=== PATIENT | male | born 1955 | race Caucasian/White ===

== ENCOUNTER 2018-04-18 10:11 | Emergency (ER) | payer BC ==
[2018-04-18 10:25] VITALS: BP 124/62
--- NOTE | 2018-04-18 11:03 | UC ---
Knee Pain HPI - HPI Summary HPI Summary: 63 yo male presents with right knee pain s/p injury. He tells me that his upstairs bathroom at home is being redone and yesterday morning he stepped through an unstable piece and his leg went through the floor. During this process his right knee bent awkwardly. He was able to get unstuck and ambulate immediately after. Since that time has had lateral knee pain. He has not taken anything for the pain and is currently ambulating without assistance or limp. Knee does not feel unstable. Denies numbness or tingling. - History of Current Complaint Chief Complaint: UCLowerExtremity Stated Complaint: KNEE INJURY Time Seen by Provider: 04/18/18 11:03 Hx Obtained From: Patient Severity Initially: Moderate Severity Currently: Mild Pain Intensity: 1 Pain Scale Used: 0-10 Numeric - Allergies/Home Medications Allergies/Adverse Reactions: Allergies Allergy/AdvReac Type Severity Reaction Status Date / Time ENVIRONMENT Allergy SNEEZE Uncoded 04/18/18 10:25 PMH/Surg Hx/FS Hx/Imm Hx Endocrine History: Dyslipidemia - Surgical History Surgical History: Yes Surgery Procedure, Year, and Place: 2006 [place] [facility] [place]. 1964 [place]IL[place]OMY, JAYNE. 2014[place] [facility] [place] Family History Known Family History: Positive: Hypertension - Social History Occupation: Employed Full-time Lives: With Family Alcohol Use: Daily Alcohol Amount: 1 BEER DAILY Substance Use Type: None Smoking Status (MU): Former Smoker Amount Used/How Often: 2 CIGARETTES PER DAY X OFF AND ON 45 YEARS Have You Smoked in the Last Year: No When Did the Patient Quit Smoking/Using Tobacco: 2013 Review of Systems Constitutional: Negative Skin: Negative Respiratory: Negative Cardiovascular: Negative Neurovascular: Negative Musculoskeletal: Other: - Right knee pain Neurological: Negative Psychological: Negative All Other Systems Reviewed And Are Negative: Yes Physical Exam - Summary Physical Exam Summary: GENERAL: NAD. WDWN. No pain distress. SKIN: No rashes, sores, lesions, or open wounds. NECK: Supple. Nontender. No lymphadenopathy. CHEST: No accessory muscle use. Breathing comfortably and in no distress. CV: . Pulses intact popliteal, PT, and DP. Brisk cap refill. MSK: Right knee: Mild TTP over fibular head. FROM. Strength 5/5. No edema or obvious bony deformities. No patella apprehension. Negative Charline, A/P drawer , Laura, and varus/valgus stress. NEURO: Alert. Sensations intact and symmetric B/L LEs PSYCH: Age appropriate behavior. Triage Information Reviewed: Yes Vital Signs: Initial Vital Signs Temp 98 F 04/18/18 10:22 Pulse 63 04/18/18 10:22 Resp 16 04/18/18 10:22 BP 124/62 04/18/18 10:22 Pulse Ox 100 04/18/18 10:22 Vital Signs Reviewed: Yes Knee Pain Course/Dx - Course Course Of Treatment: XR: IMPRESSION: NO ACUTE OSSEOUS INJURY. IF SYMPTOMS PERSIST, RECOMMEND REPEAT IMAGING. Suspect knee sprain. Advised to RICE and take ibuprofen. F/u with ortho if symptoms persist - Differential Dx/Diagnosis Provider Diagnoses: Right knee sprain Discharge - Sign-Out/Discharge Documenting (check all that apply): Patient Departure - Discharge Plan Condition: Stable Disposition: HOME Patient Education Materials: Knee Pain (ED) Referrals: Kristin Del Cid MD [Primary Care Provider] - Riri Mota MD [Medical Doctor] - If Needed Additional Instructions: If you develop a fever, shortness of breath, chest pain, new or worsening symptoms - please call your PCP or go to the ED. 1) Rest, Ice, and elevate your knee as much as possible - Billing Disposition and Condition Condition: STABLE Disposition: Home
--- NOTE | 2018-04-18 11:12 | RAD ---
HISTORY: Pain. Fall COMPARISONS: None VIEWS: 4, Frontal, lateral, axial, and oblique views of the right knee FINDINGS: BONE DENSITY: Normal. BONES: There is no displaced fracture. There is a superior patellar enthesophyte. JOINTS: There is no arthropathy. There is no suprapatellar joint effusion or lipohemarthrosis. ALIGNMENT: There is no dislocation. SOFT TISSUES: Unremarkable. OTHER FINDINGS: None. IMPRESSION: NO ACUTE OSSEOUS INJURY. IF SYMPTOMS PERSIST, RECOMMEND REPEAT IMAGING.
== END 2018-04-18 11:20 | disposition home or self-care (01) ==
LOC: UCEAST 10:11
DX: S83.91XA Sprain of unspecified site of right knee, initial encounter (principal); X50.1XXA Overexertion from prolonged static or awkward postures, initial encounter; Y93.89 Activity, other specified; Y92.002 Bathroom of unspecified non-institutional (private) residence as the place of occurrence of the external cause; Z87.891 Personal history of nicotine dependence
CPT/HCPCS: 99211; G0463

== ENCOUNTER 2019-07-23 08:45 | Emergency (ER) | payer BC ==
--- OUTSIDE RECORDS SUMMARY | 2019-07-23 08:52 | XMS REPORT | Continuity of Care Document ---
:1955 External Reference #:[id number] Author Name Arley Almaraz, OD Address [address] [place] [address] Care Team Providers Name Role Phone Jayme Valladares MD - Internal Care Team Information Commodities Clerk [phone] Medicine Problems Active Problems Provider Date Nuclear senile cataract Arley Mooney O.D. Onset: 01/15/2014 Lens Replaced By Other Means Arley Mooney O.D. Onset: 01/15/2014 Benign neoplasm of choroid Arley Mooney O.D. Onset: 01/15/2014 Presbyopia Arley Mooney O.D. Onset: 01/31/2015 Vitreous degeneration London Garcia M.D. Onset: 01/22/2016 Tear film insufficiency Arley Mooney O.D. Onset: 10/20/2015 Status Post Surgery Lodnon Garcia M.D. Onset: 03/12/2015 Social History Type Date Description Comments Sex Unknown ETOH Use Drinks 1 Alcoholic Beverage Per Day Tobacco Use Start: Unknown End: Unknown Patient is a former smoker Smoking Status Reviewed: 05/29/19 Patient is a former smoker Allergies, Adverse Reactions, Alerts Active Allergies Reaction Severity Comments Date Seasonal 01/15/2014 Medications Active Medications SIG Qnty Indications Ordering Provider Date Spironolactone Arley Almaraz, OD 11/27/2018 25mg Tablets Zyrtec Allergy Unknown 10mg Capsules Lipitor Unknown Tablets Amlodipine/Olmesartan Medoxomil Jhon Matt MD 5-40mg Tablets Immunizations Description No Information Available Vital Signs Date Vital Result Comment 11/27/2018 12:13pm Intraocular Pressure Right Eye 15 mmHg Intraocular Pressure Left Eye 15 mmHg 05/27/2017 12:26pm Intraocular Pressure Right Eye 16 mmHg Intraocular Pressure Left Eye 16 mmHg Results Description No Information Available Procedures Description No Information Available Medical Devices Description No Information Available Encounters Description No Information Available Assessments Date Code Description Provider 05/30/2019 H35.372 Puckering of macula, left eye Arley Almaraz, OD 05/30/2019 Z96.1 Presence of intraocular lens Arley Almaraz, OD 05/30/2019 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
[2019-07-23 09:03] VITALS: BP 137/71
--- NOTE | 2019-07-23 09:19 | UC ---
Back Pain HPI - HPI Summary HPI Summary: 64 year old male with no PMH presents after fall ~ 1 week ago on ice while shoveling snow. + all over achy afterwards, however all others have improved other than left rib. + pain worse with lying on opposite side, side bending, coughing/ deep breathing. no prior rib fractures. no Headache/ head injury. Concerned pain is not being relieved. other than pain, no problems with deep breathing. - History of Current Complaint Chief Complaint: UCBackPain Stated Complaint: PAIN IN RIB AREA Time Seen by Provider: 07/23/19 09:11 Hx Obtained From: Patient Hx From Patient Unobtainable Due To: Dementia Onset/Duration: Sudden Onset, Lasting Days Timing: Constant Severity Initially: Moderate Severity Currently: Moderate Pain Intensity: 7 Pain Scale Used: 0-10 Numeric Back Pain: Is Discrete @ - left back Aggravating Factor(s): Movement, Bending, Cough Alleviating Factor(s): Rest, Position Associated Signs And Symptoms: Negative: Swelling, Redness, Bruising, Bladder Incontinence, Bowel Incontinence, Weight Loss, Pain with Weight Bearing - Allergies/Home Medications Allergies/Adverse Reactions: Allergies Allergy/AdvReac Type Severity Reaction Status Date / Time ENVIRONMENT Allergy SNEEZE Uncoded 04/18/18 10:25 Home Medications: Home Medications Amlodipine Bes/Olmesartan Med [Amlodipine-Olmesartan 5-40 mg] 1 tab PO DAILY [History Confirmed 07/23/19] Spironolactone TAB* [Aldactone TAB 25 MG*] 1 tab PO DAILY 07/23/19 [History Confirmed 07/23/19] PMH/Surg Hx/FS Hx/Imm Hx Previously Healthy: Yes - Surgical History Surgical History: Yes Surgery Procedure, Year, and Place: 2006 [place] [facility] [place]. 1964 [place]OMY, [place]. 2014[place] [facility] [place] - Family History Known Family History: Positive: Hypertension, Non-Contributory - Social History Occupation: Employed Full-time Alcohol Use: Daily Alcohol Amount: 1 BEER DAILY Substance Use Type: None Smoking Status (MU): Former Smoker Amount Used/How Often: 2 CIGARETTES PER DAY X OFF AND ON 45 YEARS Have You Smoked in the Last Year: No When Did the Patient Quit Smoking/Using Tobacco: 2013 Review of Systems All Other Systems Reviewed And Are Negative: Yes Constitutional: Positive: Negative Eyes: Positive: Negative Respiratory: Positive: Cough Neurovascular: Positive: Negative Musculoskeletal: Positive: Arthralgia, Decreased ROM, Myalgia Neurological: Positive: Negative Physical Exam Triage Information Reviewed: Yes Appearance: Well-Appearing, No Pain Distress, Well-Nourished Vital Signs: Initial Vital Signs Temp 98.9 F 07/23/19 08:54 Pulse 72 07/23/19 08:54 Resp 16 07/23/19 08:54 BP 137/71 07/23/19 08:54 Pulse Ox 96 07/23/19 08:54 Vital Signs Reviewed: Yes Eyes: Positive: Conjunctiva Clear ENT: Positive: Hearing grossly normal Respiratory: Positive: Lungs clear, Normal breath sounds, No respiratory distress, No accessory muscle use, Other: - TTP over posterior left rib, ~ 8. Negative: Respiratory distress, Crackles, Rhonchi, Stridor, Wheezing Musculoskeletal: Positive: Other: - pain with side bending at waist to right side, none with left sided. TTP over left posterior rib, pinpoint tenderness with light palpation. no edema, no bruising, no deformity noted with breathing. Neurological: Positive: Alert, Muscle Tone Normal Psychological Exam: Normal Skin Exam: Normal Skin: Negative: Rashes, Breakdown - no open wounds, sores. Back Pain Course/Dx - Course Course Of Treatment: X-ray- negative for fx. - Anti-inflammatory medication for next 3-4 days to decrease pain, swelling - Over the counter lidocaine patches to help with pain as needed - Increase deep breathing several times a day to prevent pneumonia - Continue to monitor area- if no improvement within 1 week or worsening, or if coughing up blood return or go to ER. Mortgage Field Inspector: Sudhakar Servin Daniel, ([id number]) Media Sales Consultant: ALCIDES ( ALCIDES) Report Date: 07/23/2019 09:50:00 Report Status: Final ====== Start of Report Content Patient Name: KASHIF TURNER Medical Record#: [id number] Ordering Physician: Eden Briseno MD Acct.#: [id number] : 1955 Age: 64 Sex: M Location: [facility] Exam Date: ADM Status: REG ER Order Information: RIBS LEFT UNILATERAL 2 VWS Accession Number: [id number] CPT: 45289 HISTORY: FALL left rib pain COMPARISONS : None relevant available at the time of dictation. VIEWS: 4, Frontal and oblique views of the left hemithorax. FINDINGS: There is no displaced rib fracture or pneumothorax. The visualized lungs are clear. IMPRESSION: NO DISPLACED RIB FRACTURE OR PNEUMOTHORAX. <Electronically signed by Sudhakar Servin MD in OV> 945 Dictated By: Sudhakar Servin MD Dictated Date/Time: 07/23/19944 Transcribed Date/Time: 07/23/19944 Copy to: CC:Kristin Del Cid MD; Eden Briseno MD Imaging - [facility] Imaging - [facility] [address] [place] [address] ph ([phone]) ph [phone] ph ([phone]) End of Report Content - Differential Dx/Diagnosis Differential Diagnosis/HQI/PQRI: Fracture, Strain, Sprain Provider Diagnosis: Contusion of rib on left side Discharge ED - Sign-Out/Discharge Documenting (check all that apply): Patient Departure All imaging exams completed and their final reports reviewed: Yes - Discharge Plan Condition: Good Disposition: HOME Prescriptions: Naproxen [Naproxen 500 mg tab] 500 mg PO BID #10 tablet. Patient Education Materials: Contusion in Adults (ED), Rib Contusion (ED) Referrals: Kristin Del Cid MD [Primary Care Provider] - Additional Instructions: - Anti-inflammatory medication for next 3-4 days to decrease pain, swelling - Over the counter lidocaine patches to help with pain as needed - Increase deep breathing several times a day to prevent pneumonia - Continue to monitor area- if no improvement within 1 week or worsening, or if coughing up blood return or go to ER. Radiograph report: Mortgage Field Inspector: Sudhakar Servin Daniel, ([id number]) Media Sales Consultant: ALCIDES ( ALCIDES) Report Date: 07/23/2019 09:50:00 Report Status: Final ====== Start of Report Content Patient Name: KASHIF TURNER Medical Record#: [id number] Ordering Physician: Eden Briseno MD Acct.#: [id number] : 1955 Age: 64 Sex: M Location: [facility] Exam Date: ADM Status: REG ER Order Information: RIBS LEFT UNILATERAL 2 VWS Accession Number: [id number] CPT: 36514 HISTORY: FALL left rib pain COMPARISONS : None relevant available at the time of dictation. VIEWS: 4, Frontal and oblique views of the left hemithorax. FINDINGS: There is no displaced rib fracture or pneumothorax. The visualized lungs are clear. IMPRESSION: NO DISPLACED RIB FRACTURE OR PNEUMOTHORAX. <Electronically signed by Sudhakar Servin MD in OV> 945 Dictated By: Sudhakar Servin MD Dictated Date/Time: 07/23/19944 Transcribed Date/Time: 07/23/19944 Copy to: CC:Kristin Del Cid MD; Eden Briseno MD Imaging - [facility] Imaging - [facility] Imaging - [facility] [address] [place] [address] ph [phone] ph ([phone]) ph ([phone]) End of Report Content - Billing Disposition and Condition Condition: GOOD Disposition: Home
== END 2019-07-23 09:55 | disposition home or self-care (01) ==
LOC: UCEAST 08:45
DX: S20.212A Contusion of left front wall of thorax, initial encounter (principal); Z91.09 Other allergy status, other than to drugs and biological substances; Z87.891 Personal history of nicotine dependence; W00.9XXA Unspecified fall due to ice and snow, initial encounter; Y93.H1 Activity, digging, shoveling and raking; Y92.9 Unspecified place or not applicable
CPT/HCPCS: 71046; 99212; G0463